=== PATIENT | male | born 1990 | race Two or more races ===

== ENCOUNTER 2018-09-21 14:17 | Emergency (ER) | payer SELFPAY ==
[~2018-09-21] VITALS: Ht 172.7 cm; Wt 67.0 kg
[2018-09-21 14:33] VITALS: BP 107/64
== END 2018-09-21 17:01 | disposition left against medical advice (07) ==
LOC: ER 14:17
DX: Z53.21 Procedure and treatment not carried out due to patient leaving prior to being seen by health care provider (principal); F17.200 Nicotine dependence, unspecified, uncomplicated